=== PATIENT | female | born 1965 | race Caucasian/White ===

== ENCOUNTER → 2018-10-10 | Outpatient (CLI) | payer BC, SELFPAY ==
[2014-06-18 08:49] VITALS: BMI 33.6
[2018-10-14 16:26] LABS: HPV Reflexed? NOT INDICATED
== END | disposition home or self-care (01) ==
LOC: LABSPEC 15:39
PROVIDERS: Visit Provider Obstetrics & Gynecology
DX: Z12.4 Encounter for screening for malignant neoplasm of cervix (principal)
CPT/HCPCS: 87624; 88175; G0145

== ENCOUNTER → 2018-10-31 | Outpatient (CLI) | payer BC, SELFPAY ==
--- NOTE | 2018-10-31 12:44 | BI_ITS ---
MAMMOGRAPHY - BILATERAL SCREENING REASON FOR EXAM: Female, 53 years old. Routine annual screening examination. PERTINENT HISTORY: Mother with breast cancer. TECHNIQUE: Digital bilateral breast tia (3D mammographic acquisition) in the CC and MLO projections. 2-D mediolateral oblique (MLO) and craniocaudad (CC) views of both breasts were obtained. CAD: Full Field Digital Mammography with Computer Added Detection was performed. COMPARISON: Comparison is made with prior examination dated June 21, 2017. FINDINGS: Breast Composition: There are scattered areas of fibroglandular density. There are no dominant masses or suspicious calcifications. There is a 1.1 cm slightly irregular nodular density seen in the upper mid aspect of the right breast on the mediolateral oblique view. This is not well visualized on the craniocaudad view. The patient will be recalled for additional views including 90 degree lateral and compression spot views. No other significant abnormalities are identified. BI/SCREEN MAMM (CAD) W/TIA BILAT IMPRESSION: 1.1 sinus slightly irregular nodule in the upper mid aspect of the right breast as seen on the mediolateral oblique view. The patient will be recalled for additional views including compression spot views and 90 degree lateral view. ASSESSMENT CATEGORY: BIRADS Category 0: Incomplete. Need additional imaging evaluation. A letter regarding these results will be sent to the patient by the facility within 30 days. Approximately 10% of breast cancers are not detected by mammography. A normal mammogram should not delay biopsy of a clinically suspicious abnormality. [id number] Electronically Signed: Scotty Goodman, at 15:02 EDT , Service support ,
== END | disposition home or self-care (01) ==
LOC: OPBI 12:42
PROVIDERS: Family Provider Internal Medicine; PCP Internal Medicine; Referring Provider Obstetrics & Gynecology; Visit Provider Obstetrics & Gynecology
DX: Z12.31 Encounter for screening mammogram for malignant neoplasm of breast (principal)
CPT/HCPCS: 77063; 77067

== ENCOUNTER → 2018-11-07 | Outpatient (CLI) | payer BC, SELFPAY ==
--- NOTE | 2018-11-07 09:17 | BI_ITS ---
MAMMOGRAPHY - UNILATERAL DIAGNOSTIC: RIGHT BREAST REASON FOR EXAM: Female, 53 years old. Right breast nodule/density PERTINENT HISTORY: Mother with breast cancer. TECHNIQUE: Digital examination. Mediolateral oblique (MLO) and craniocaudad (CC) views of the breast were obtained along with true lateral view. CAD: CAD was performed on this study. COMPARISON: 10/31/2018 FINDINGS: Breast Composition: There are scattered areas of fibroglandular density. Persistent density in the upper outer quadrant of the right breast. Its borders are not clearly defined. It does not compress out on the spot compression views. Further evaluation with ultrasound recommended. No other significant abnormalities are identified. BI/DIAG MAMM W/CAD, UNILAT IMPRESSION: Further ultrasonographic evaluation recommended, as described above. Recall Side: Right Breast ASSESSMENT CATEGORY: BIRADS Category 0: Incomplete. Need additional imaging evaluation. A letter regarding these results will be sent to the patient by the facility within 30 days. FOLLOW-UP RECOMMENDATION: Ultrasound recommended. (I) Approximately 10% of breast cancers are not detected by mammography. A normal mammogram should not delay biopsy of a clinically suspicious abnormality. Electronically Signed: Ortega Charlton MD at 12:17 EDT , Service support ,
--- NOTE | 2018-11-07 09:18 | US_ITS ---
STUDY: ULTRASOUND BREAST - RIGHT REASON FOR EXAM: Female, 53 years old. Persistent right breast density TECHNIQUE: Axial and longitudinal images of the RIGHT breast were performed with a high resolution ultrasound transducer. COMPARISON: None. FINDINGS: RIGHT Breast: Sonographic evaluation of the right breast was performed in the area of concern. There are some prominent dilated ducts at 9:00 which likely correspond to the poorly defined asymmetry of the mammogram. There is no suspicious solid or cystic mass, architectural distortion or shadowing calcifications. US/Breast Limited Unilateral IMPRESSION: Dilated ducts, no suspicious sonographic findings. ASSESSMENT CATEGORY: BIRADS Category 2: Benign. A letter regarding these results will be sent to the patient by the facility within 30 days. Electronically Signed: Ortega Charlton MD at 12:18 EDT , Service support ,
== END | disposition home or self-care (01) ==
LOC: OPBI 09:16
PROVIDERS: Family Provider Internal Medicine; PCP Internal Medicine; Referring Provider Obstetrics & Gynecology; Visit Provider Obstetrics & Gynecology
DX: R92.2 Inconclusive mammogram (principal)
CPT/HCPCS: 76642; 77065

== ENCOUNTER 2021-03-17 07:42 | Emergency (ER) | payer BC, SELFPAY ==
[2021-03-17 07:43] VITALS: BP 188/145; PULSE 116; RESP 19; TEMP 36.1; O2SAT 97; BMI 27.4
--- NOTE | 2021-03-17 07:58 | CT_ITS ---
STUDY: CT SOFT TISSUE NECK WITH CONTRAST REASON FOR EXAM: Female, 55 years old. Pain, FB sensation RADIATION DOSAGE (If Supplied By Facility): CTDIvol = ( 20.01 ) mGy, DLP = ( 484.82 ) mGycm TECHNIQUE: The patient was scanned in a multi-detector CT scanner. High resolution transaxial imaging was performed following intravenous administration of IV 100mL [id number]-300. Sagittal and coronal images were reconstructed. Individualized dose optimization techniques were used for this CT. COMPARISON: None. FINDINGS: Normal bilateral parotid glands. Normal bilateral rn mds coordinator spaces. Normal bilateral parapharyngeal spaces. Normal bilateral carotid spaces. Normal bilateral sublingual and submandibular glands and spaces. Normal visualized nasopharynx. Normal retropharyngeal space. Normal perivertebral space. Normal visualized bilateral faucial tonsils. The visualized tongue, tongue base and oropharynx are normal. The visualized cervical lymph nodes (levels I-) are within normal size limits, and maintain normal morphology. There is no demonstrated solid or cystic mass lesion. There is no abnormal contrast enhancement. Normal epiglottis, bilateral vallecula and hypopharynx. The pre-epiglottic and paraglottic adipose spaces are normal. Normal visualized bilateral piriform sinuses, aryepiglottic folds, vocal cords, and arytenoid-cricoid articulations. Normal subglottic trachea. Normal bilateral lobes of the thyroid gland. Normal visualized pulmonary apices. Normal visualized paranasal sinuses. There is multilevel degenerative changes of the cervical spine. CT/Soft Tissue Neck WITH Contrast IMPRESSION: Normal enhanced CT examination of the soft tissues of the neck. Electronically Signed: Scotty Goodman MD at 9:42 EST , Service support ,
--- NOTE | 2021-03-17 07:59 | EX.ED.DYSGE1 ---
HPI History of Present Illness Chief Complaint: Sore Throat Informant: patient Onset/Context/Timing Onset: Today Current Severity: Mild Maximum Severity: Moderate Narrative Narrative: Patient presents with foreign body sensation in her throat. She states her throat was little sore when she woke this morning. When she coughs she feels it there is some thick phlegm that gets stuck to the back of her tongue. Has not been able to bring it up. She had mild runny nose lately. No fever. She felt okay when she went to bed last evening. It is noted patient is on lisinopril. [facility] Medical History Hypertension Home Medications Lisinopril/Hydrochlorothiazide [Zestoretic 20/12.5 Tablet] 1 tab PO DAILY 06/18/14 [History Last Taken Unknown] duloxetine 60 mg PO DAILY 06/18/14 [History Last Taken Unknown] meloxicam 7.5 mg PO DAILY 06/18/14 [History Last Taken Unknown] prednisone 40 mg PO DAILY 4 Days #8 tab 03/17/21 [Rx Last Taken Unknown] Allergy/AdvReac Type Severity Reaction Status Date / Time No Known Allergies Allergy Verified 03/17/21 07:45 Social History Smoking Status: Never smoker ROS ROS ED Constitutional Constitutional ED: Denies chills or fever(s) Eyes Eyes: Denies change in vision ENT ENT ED: Reports rhinorrhea and sore throat Cardiovascular Cardiovascular: Denies chest pain Respiratory/Chest Respiratory/Chest: Denies cough or dyspnea Gastrointestinal Gastrointestinal: Denies abdominal pain, diarrhea, nausea or vomiting Genitourinary Genitourinary ED: Denies dysuria Musculoskeletal Musculoskeletal: Denies back pain Integumentary Denies rash Neurologic Neurologic: Denies headache(s) or weakness Allergic/Immunologic Allergic/Immunologic ED: Denies urticaria EXAM Physical Exam Narrative Exam Narrative: Patient speaks with a strong voice and tolerates secretions well. Const Vital Signs: 03/17/21 07:43 03/17/21 11:26 Temperature 97 F L Temperature Source Temporal Pulse Rate 116 H Respiratory Rate 19 H Blood Pressure 188/145 H Blood Pressure Mean 159 Pulse Ox 97 94 Oxygen Delivery Method Room Air Room Air Positive well nourished and well developed General Appearance ED: well developed HEENT Reports moist mucous membranes HEENT Narrative: No tongue edema noted. Poor visualization of the uvula and tonsils secondary to anatomy. Eyes PERRL and EOMs intact bilaterally Neck supple Chest Wall inspection of chest normal and palpation of chest normal Resp normal respiratory effort and clear to auscultation bilaterally GI normal to inspection, nondistended, normoactive bowel sounds and non-tender Palpation: soft Extremity normal to inspection Neuro oriented x3 Sensorium / Orientation: alert Psych mental status grossly normal Skin no rashes or lesions noted MDM MDM MDM Narrative Medical decision making narrative: Lab work obtained along with CT scan of the neck with contrast. Lab Data Attestation: I reviewed the patient's lab results. Labs: Laboratory Results - last 24 hr 03/17/21 03/17/21 08:38 08:38 WBC 7.6 RBC 4.96 Hgb 14.4 Hct 44.1 MCV 88.9 MCH 29.0 MCHC 32.7 RDW Std Deviation 40.5 RDW Coeff of Harleen 12.5 Plt Count 361 MPV 9.1 Immature Gran % (Auto) 0.400 Neut % (Auto) 60.8 Lymph % (Auto) 27.4 [place] % (Auto) 6.7 Eos % (Auto) 4.2 Baso % (Auto) 0.5 Absolute Neuts (auto) 4.6 Absolute Lymphs (auto) 2.07 Nucleated RBC % 0 Sodium 138 Potassium 4.3 Chloride 105 Carbon Dioxide 28.0 Anion Gap 5 BUN 21 H Creatinine 0.98 Estim Creat Clear Calc 52.39 Est GFR (MDRD) Af Amer 75 Est GFR (MDRD) Non-Af 62 BUN/Creatinine Ratio 21.3 H Glucose 93 Calcium 9.4 Radiography Diagnostic Testing: Clinical Impression(s) from Imaging Studies Soft Tissue Neck CT 03/17/21 07:58 IMPRESSION: Normal enhanced CT examination of the soft tissues of the neck. Electronically Signed: Scotty Goodman MD at 9:42 EST , Service support , Treatment and Re-Evaluation Comments:: Lab work unremarkable and CT scan reveals no obvious mass. Because the patient is on lisinopril she was given a dose of Solu-Medrol, Pepcid, Benadryl. An hour later patient reported no significant change. She continues to have a strong voice and is tolerating secretions well. I attempted to contact her doctor, Dr. Santiago. Dr. Tam called back. He agrees the patient should not take anymore lisinopril. He will contact us Dr. Santiago to ensure the patient is seen for follow-up tomorrow. Patient will be given 4 additional days of steroids. Discharge Plan Triage Chief Complaint: Sore Throat ED Provider: Katy Manzo Dx/Rx/DC Orders Clinical Impression: Pharyngitis Prescriptions: New prednisone 20 mg tablet 40 mg PO DAILY 4 Days Qty: 8 RF: 0 No Action meloxicam 7.5 MG tablet 7.5 mg PO DAILY RF: 0 duloxetine 60 MG capsule 60 mg PO DAILY RF: 0 Lisinopril/Hydrochlorothiazide [Zestoretic 20/12.5 Tablet] 1 TABLET tablet 1 tab PO DAILY RF: 0 Primary Care Provider: Evie Santiago Referrals: Evie Santiago MD [Primary Care Provider] - 1 Day Activity Restrictions/Additional Instructions: As discussed, do not take your lisinopril. Be sure to follow-up with Dr. Santiago tomorrow. Disposition Disposition: Home, Self Care
[2021-03-17 08:49] LABS: Absolute Lymphocyte Count 2.07 X10^3/uL (0.83-4.51); Absolute Neutrophil Count 4.6 X10^3/uL (2.0-7.7); Basophil# 0.04 X10^3/uL; Basophil% 0.5 % (0-1); Eosinophil# 0.32 X10^3/uL; Eosinophils% 4.2 % (0-5); Hematocrit 44.1 % (37-47); Hemoglobin 14.4 g/dL (12.0-15.0); Lymphocyte # 2.07 X10^3/ul (0.83-4.51); Lymphocyte % 27.4 % (19-41); Mean Corp Hgb Conc 32.7 g/dL (32-36); Mean Corpuscular Volume 88.9 fL (81-99); Mean Platelet Vol. 9.1 fl (6.2-12.0); Monocyte# 0.51 X10^3/uL; Monocyte% 6.7 % (0-10); NRBC Flagged by Analyzer 0 % (0-5); Neutrophil # 4.59 X10^3/uL (2.7-7.7); Neutrophil % 60.8 % (47-70); Platelet Count 361 K/mm3 (150-450); RBC Distribution Width CV 12.5 % (11.6-14.6); RBC Distribution Width SD 40.5 fl (35.1-43.9); Red Blood Count 4.96 M/mm3 (4.2-5.4); White Blood Count 7.6 K/mm3 (4.4-11.0)
[2021-03-17 09:04] LABS: Anion Gap 5 (5-15); BUN 21 mg/dL (7-18); BUN/Creat Ratio 21.3 RATIO (10-20); Calcium,Total 9.4 mg/dL (8.5-10.1); Chloride 105 mmol/L (98-107); Creatinine, Serum 0.98 mg/dL (0.55-1.02); EST Glomerular Filtration Rate 62 mL/min (>60); Est Glom Filt Rate - Afr Amer 75 mL/min (>60); Estimated Creatinine Clearance 52.39 ml/min; Glucose 93 mg/dL (74-106); Potassium 4.3 mmol/L (3.5-5.1); Sodium Level 138 mmol/L (136-145)
[2021-03-17 11:26] VITALS: O2SAT 94
[2021-03-17] MEDS: Famotidine 200 MG/20 ML MDV 20 MG in 0.9% Normal Saline (Pres. free 8 ML 300 MG IV (11:28)
[2021-03-17] MEDS: DiphenhydrAMINE 50 MG/ML Syringe 12.5 MG IV (11:28)
[2021-03-17] MEDS: MethylPREDNISolone 125 MG/2 ML Vial IV (11:28)
[2021-03-17 13:34] VITALS: BP 138/78; PULSE 78; RESP 16; TEMP 36.3; O2SAT 98
== END 2021-03-17 13:37 | disposition home or self-care (01) ==
PROVIDERS: Emergency Provider Emergency Medicine; PCP Internal Medicine
DX: J02.9 Acute pharyngitis, unspecified (principal); I10 Essential (primary) hypertension; Z79.899 Other long term (current) drug therapy
CPT/HCPCS: 70491; 80048; 85025; 96374; 96375; 99283; Q9967; A4216; J3490

== ENCOUNTER → 2024-08-21 | Outpatient (CLI) | payer BC, SELFPAY ==
[2024-08-21 18:39] LABS: Absolute Lymphocyte Count 1.94 X10^3/uL (0.83-4.51); Absolute Neutrophil Count 4.4 X10^3/uL (2.0-7.7); Basophil# 0.03 X10^3/uL; Basophil% 0.4 % (0-1); Eosinophil# 0.18 X10^3/uL; Eosinophils% 2.5 % (0-5); Hematocrit 39.6 % (37-47); Hemoglobin 13.5 g/dL (12.0-15.0); Lymphocyte # 1.94 X10^3/ul (0.83-4.51); Lymphocyte % 27.5 % (19-41); Mean Corp Hgb Conc 34.1 g/dL (32-36); Mean Corpuscular Hgb 30.1 pg (27.0-32.0); Mean Corpuscular Volume 88.2 fL (81-99); Mean Platelet Vol. 9.4 fl (6.2-12.0); Monocyte# 0.53 X10^3/uL; Monocyte% 7.5 % (0-10); NRBC Flagged by Analyzer 0 % (0-5); Neutrophil # 4.37 X10^3/uL (2.7-7.7); Platelet Count 341 K/mm3 (150-450); RBC Distribution Width CV 12.6 % (11.6-14.6); Red Blood Count 4.49 M/mm3 (4.2-5.4); White Blood Count 7.1 K/mm3 (4.4-11.0)
[2024-08-21 18:45] LABS: Anion Gap 11 (5-15); BUN 16 mg/dL (4-19); BUN/Creat Ratio 18.7 RATIO (10-20); CRP < 3.00 mg/L (0.0-3.0); Calcium,Total 9.7 mg/dL (7.6-11.0); Carbon Dioxide 25.2 mmol/L (21.0-32.0); Chloride 104 mmol/L (98-108); Creatinine, Serum 0.87 mg/dL (0.70-1.20); EST Glomerular Filtration Rate 77 (>60); Glucose 83 mg/dL (70-99); Magnesium 2.2 mg/dL (1.5-2.2); Potassium 3.4 mmol/L (3.3-5.1); Sodium Level 140 mmol/L (133-145)
[2024-08-21 18:46] LABS: Erythrocyte Sedimentation Rate 4 mm/hr (0-30)
== END | disposition home or self-care (01) ==
PROVIDERS: PCP Internal Medicine; Referring Provider Nurse Practitioner; Visit Provider Nurse Practitioner
DX: M25.551 Pain in right hip (principal); M25.552 Pain in left hip; M79.10 Myalgia, unspecified site; M79.604 Pain in right leg; M79.605 Pain in left leg
CPT/HCPCS: 36415; 80048; 83735; 84443; 85025; 85652; 86140